=== PATIENT | female | born 1935 | race Caucasian/White ===

== ENCOUNTER 2017-04-24 02:03 | Inpatient (IN) | payer MEDICARE ==
[2017-04-24] MEDS ORDERED: SODIUM CHLORIDE 0.9% 1,000 ML IV STA (02:56)
--- NOTE | 2017-04-24 02:57 | ED ---
Nausea/Vomiting/Diarrhea HPI - General Chief complaint: Nausea/Vomiting/Diarrhea Stated complaint: diarrhea Time Seen by Provider: 04/24/17 02:31 Source: family, EMS, RN notes reviewed, old records reviewed Mode of arrival: EMS Limitations: no limitations - History of Present Illness Initial comments: 81-year-old female presents emergency Department chief complaint of one episode of severe diarrhea this evening. She reports she's had some mild abdominal cramping in her right upper and right lower quadrants. Patient states that she is had no significant abdominal surgeries. She reports that she's had some chills but denies any specific fever. Denies any vomiting. Patient reports that all of her symptoms seem to occur after she followed up with her primary care and was diagnosed with sciatica in her right leg. Patient ports that she took 2 naproxen and her dementia medication and that seemed to cause the diarrhea for her.Patient denies any recent fever, chills, shortness of breath, chest pain, back pain, abdominal pain, nausea vomiting, numbness or tingling, dysuria or hematuria, constipation, headaches or visual changes, or any other current symptoms - Related Data Allergies Allergy/AdvReac Type Severity Reaction Status Date / Time No Known Allergies Allergy Verified 04/24/17 02:04 Review of Systems ROS Statement: Those systems with pertinent positive or pertinent negative responses have been documented in the HPI. ROS Other: All systems not noted in ROS Statement are negative. Past Medical History Past Medical History: Dementia History of Any Multi-Drug Resistant Organisms: None Reported Past Surgical History: No Surgical Hx Reported Past Psychological History: No Psychological Hx Reported Smoking Status: Never smoker Past Alcohol Use History: None Reported Past Drug Use History: None Reported General Exam - General Exam Comments Initial Comments: 81-year-old female. No acute distress. Limitations: no limitations General appearance: alert, in no apparent distress Head exam: Present: atraumatic, normocephalic, normal inspection Eye exam: Present: normal appearance, PERRL, EOMI. Absent: scleral icterus, conjunctival injection, periorbital swelling ENT exam: Present: normal exam, mucous membranes moist Neck exam: Present: normal inspection. Absent: tenderness, meningismus, lymphadenopathy Respiratory exam: Present: normal lung sounds bilaterally. Absent: respiratory distress, wheezes, rales, rhonchi, stridor Cardiovascular Exam: Present: regular rate, normal rhythm, normal heart sounds. Absent: systolic murmur, diastolic murmur, rubs, gallop, clicks GI/Abdominal exam: Present: soft, tenderness (Right upper quadrant epigastric tenderness.), normal bowel sounds. Absent: distended, guarding, rebound, rigid Extremities exam: Present: normal inspection, full ROM, normal capillary refill. Absent: tenderness, pedal edema, joint swelling, calf tenderness Back exam: Present: normal inspection Neurological exam: Present: alert, oriented X3, CN II-XII intact Psychiatric exam: Present: normal affect, normal mood Skin exam: Present: warm, dry, intact, normal color. Absent: rash Course Vital Signs 04/24/17 02:04 Temperature 97.6 F Pulse Rate 68 Respiratory 16 Rate Blood Pressure 137/60 O2 Sat by Pulse 99 Oximetry Medical Decision Making - Medical Decision Making 81-year-old female presents emergency Department chief complaint of one episode of severe diarrhea this evening. She reports she's had some mild abdominal cramping in her right upper and right lower quadrants. Patient states that she is had no significant abdominal surgeries. She reports that she's had some chills but denies any specific fever. Denies any vomiting. Patient reports that all of her symptoms seem to occur after she followed up with her primary care and was diagnosed with sciatica in her right leg. Patient ports that she took 2 naproxen and her dementia medication and that seemed to cause the diarrhea for her. Patient was reevaluated abdomen is soft and nontender. Lab work was reviewed and show significant family elevated lipase patient was supported his results. Patient son is concerned of her lab work in patient reports that she feels that she doesn't be kept. Patient will be giving some medication to help her sleep. Discussed this case with Dr. Byers who will discuss with Dr. Hutchinson. Patient will be admitted with IV hydration and US abdomen in the morning. - Lab Data Result diagrams: 04/24/17 03:13 04/24/17 03:13 Lab Results 04/24/17 04/24/17 04/24/17 Range/Units 03:13 03:13 04:30 WBC 12.6 H (3.8-10.6) k/uL RBC 4.56 (3.80-5.40) m/uL Hgb 13.6 (11.4-16.0) gm/dL Hct 42.7 (34.0-46.0) % MCV 93.7 (80.0-100.0) fL MCH 29.7 (25.0-35.0) pg MCHC 31.7 (31.0-37.0) g/dL RDW 12.9 (11.5-15.5) % Plt Count 271 (150-450) k/uL Neutrophils % 87 % Lymphocytes % 4 % Monocytes % 7 % Eosinophils % 1 % Basophils % 0 % Neutrophils # 11.0 H (1.3-7.7) k/uL Lymphocytes # 0.5 L (1.0-4.8) k/uL Monocytes # 0.9 (0-1.0) k/uL Eosinophils # 0.1 (0-0.7) k/uL Basophils # 0.0 (0-0.2) k/uL Sodium 141 (137-145) mmol/L Potassium 4.3 (3.5-5.1) mmol/L Chloride 107 (98-107) mmol/L Carbon Dioxide 25 (22-30) mmol/L Anion Gap 9 mmol/L BUN 20 H (7-17) mg/dL Creatinine 1.30 H (0.52-1.04) mg/dL Est GFR (MDRD) Af Amer 47 (>60 ml/min/1.73 sqM) Est GFR (MDRD) Non-Af 39 (>60 ml/min/1.73 sqM) Glucose 117 H (74-99) mg/dL Calcium 9.0 (8.4-10.2) mg/dL Total Bilirubin 0.6 (0.2-1.3) mg/dL AST 21 (14-36) U/L ALT 31 (9-52) U/L Alkaline Phosphatase 72 (38-126) U/L Total Protein 6.5 (6.3-8.2) g/dL Albumin 3.6 (3.5-5.0) g/dL Amylase 213 H (30-110) U/L Lipase 1342 H (23-300) U/L Urine Color Yellow Urine Appearance Clear (Clear) Urine pH 6.5 (5.0-8.0) Ur Specific [place] 1.011 (1.001-1.035) Urine Protein Negative (Negative) Urine Glucose (UA) Negative (Negative) Urine Ketones Negative (Negative) Urine Blood Negative (Negative) Urine Nitrite Negative (Negative) Urine Bilirubin Negative (Negative) Urine Urobilinogen <2.0 (<2.0) mg/dL Ur Leukocyte Esterase Small H (Negative) Urine RBC 1 (0-5) /hpf Urine WBC 6 H (0-5) /hpf Ur Squamous Epith Cells <1 (0-4) /hpf Urine Bacteria Rare H (None) /hpf Hyaline Casts 5 H (0-2) /lpf Urine Mucus Rare H (None) /hpf - Radiology Data Radiology results: report reviewed KUB shows non obstructive bowel gas pattern. Disposition Clinical Impression: Acute pancreatitis Disposition: ADMITTED IP TO [facility] Condition: Good Time of Disposition: 04:45
[2017-04-24 03:55] LABS: Potassium 4.3 mmol/L (3.5-5.1); Total Bilirubin 0.6 mg/dL (0.2-1.3); Total Protein 6.5 g/dL (6.3-8.2)
[2017-04-24 04:05] LABS: Basophils % (A) 0 %; CH 29.7; CHCM 31.8; Eosinophils # (A) 0.1 k/uL (0-0.7); Eosinophils % (A) 1 %; HCT 42.7 % (34.0-46.0); HDW 2.02; HGB 13.6 gm/dL (11.4-16.0); Luc # (Auto) 0.13; Luc % (Auto) 1; Lymphocytes # (A) 0.5 k/uL (1.0-4.8); Lymphocytes % (A) 4 %; MCH 29.7 pg (25.0-35.0); MCHC 31.7 g/dL (31.0-37.0); MCV 93.7 fL (80.0-100.0); Mean Platelet Volume 7.6; Monocytes # (A) 0.9 k/uL (0-1.0); Monocytes % (A) 7 %; Neutrophils % (A) 87 %; RBC 4.56 m/uL (3.80-5.40); RDW 12.9 % (11.5-15.5); WBC 12.6 k/uL (3.8-10.6); WBC (Perox) 12.15
--- NOTE | 2017-04-24 04:12 | XR ---
EXAM: XR Abdomen, 1 View CLINICAL HISTORY: pain TECHNIQUE: Frontal supine view of the abdomen/pelvis. COMPARISON: No relevant prior studies available. FINDINGS: Intraperitoneal space: No pneumatosis or free air. Gastrointestinal tract: Gas and stool noted throughout the small bowel and colon. Nonobstructive bowel gas pattern. Organs: Calcifications within the pelvis which may represent degenerating fibroids. Bones/joints: Degenerative changes of the osseous structures. IMPRESSION: Gas and stool noted throughout the small bowel and colon. Nonobstructive bowel gas pattern. No pneumatosis or free air.
[2017-04-24] MEDS ORDERED: LORazepam 2 MG/ML SYRINGE IV PRN (04:45)
[2017-04-24] MEDS ORDERED: HYDROmorphone 1 MG/ML 1 ML SYRINGE IV PRN (04:45)
[2017-04-24] MEDS ORDERED: ONDANSETRON 4 MG/2 ML VIAL IVP PRN (04:45)
[2017-04-24] MEDS ORDERED: KETOROLAC 30 MG/ML 1 ML VIAL IVP PRN (04:45)
[2017-04-24] MEDS ORDERED: NALOXONE 0.4 MG/ML 1 ML VIAL IV PRN (04:45)
[2017-04-24 05:01] LABS: Appearance,Urine Clear (Clear); Bacteria,Urine Rare /hpf; Bilirubin,Urine Negative (Negative); Glucose,Urine (UA) Negative (Negative); Ketones,Urine Negative (Negative); Leukocyte Esterase,Urine Small (Negative); Mucus,Urine Rare /hpf; Nitrite,Urine Negative (Negative); PH, Urine 6.5 (5.0-8.0); Particle Count 1069; Protein,Urine Negative (Negative); RBC,Urine 1 /hpf (0-5); Specific Gravity,Urine 1.011 (1.001-1.035); Squamous Epithelial Cell,Urine <1 /hpf (0-4); UA Billing (MACRO vs. MICRO) MICRO; Urobilinogen,Urine <2.0 mg/dL (<2.0); WBC,Urine 6 /hpf (0-5)
[2017-04-24] MEDS: SODIUM CHLORIDE 0.9% 1,000 ML IV SCH ×2 (05:19→20:19)
--- NOTE | 2017-04-24 08:52 | US ---
EXAMINATION TYPE: US abdomen complete DATE OF EXAM: 04/24/2017 COMPARISON: NONE CLINICAL HISTORY: Pain. Abdomen pain EXAM MEASUREMENTS: Liver Length: 14.2 cm Gallbladder Wall: 0.2 cm CBD: 0.4 cm Spleen: 9.9 cm Right Kidney: 8.1 x 4.0 x 5.1 cm Left Kidney: 9.3 x 4.6 x 4.5 cm Pancreas: visualized portions appear heterogeneous, tail obscured by overlying midline bowel gas, du ct seen measuring 0.2cm Liver: somewhat course echotexture, 0.9cm cyst Gallbladder: multiple hyperechoic non shadowing non mobile foci along anterior wall with largest radha suring 0.3cm, possible polyps Evidence for sonographic Kim's sign: no CBD: wnl Spleen: wnl Right Kidney: 1.4 x 1.3 x 1.5cm hypoechoic area inferior pole Left Kidney: 0.8cm hypoechoic area mid pole Upper IVC: wnl Abd Aorta: wnl Limited views of the pancreas are unremarkable. The liver is normal in size without biliary dilatation. There is a 9.4 mm cyst within the left lobe o f the liver. There are multiple gallbladder polyps. The gallbladder wall measures 2 mm. The distal common hepatic duct measures 4 mm. The spleen is normal. There is a 1.5 cm hypoechoic, solid lesion in the mid polar region of the right kidney. There is an 8 mm solid appearing lesion in the left kidney in the mid polar region. Visualized portions of aorta and IVC are normal. IMPRESSION: 1. MULTIPLE GALLBLADDER POLYPS. 2. SIMPLE APPEARING LEFT HEPATIC CYST. 3. BILATERAL SOLID-APPEARING LESIONS IN BOTH KIDNEYS. FURTHER IMAGING WITH CT OR MR WOULD BE SUGGESTE D.
--- NOTE | 2017-04-24 08:54 | XR ---
EXAMINATION TYPE: XR chest 2V DATE OF EXAM: 04/24/2017 COMPARISON: NONE TECHNIQUE: PA and lateral views submitted. HISTORY: Pain FINDINGS: The lungs are clear and there is no pneumothorax, pleural effusion, or focal pneumonia. Degenerativ e change of the spine. No overt congestion. There is thickening of the right paratracheal stripe. Tin y granuloma left lung noted. IMPRESSION: 1. No acute process. There appears be thickening of the right paratracheal stripe. Recommend CT chest to rule out adenopathy
[2017-04-24 09:15] VITALS: BMI 23.8
[2017-04-25 07:17] LABS: ALT 29 U/L (9-52); AST 18 U/L (14-36); Alkaline Phosphatase 60 U/L (38-126); Anion Gap 5 mmol/L; Blood Urea Nitrogen 9 mg/dL (7-17); Calcium 8.4 mg/dL (8.4-10.2); Carbon Dioxide 23 mmol/L (22-30); Chloride 114 mmol/L (98-107); Cholesterol 131 mg/dL (<200); Glucose 78 mg/dL (74-99); HDL Cholesterol 43 mg/dL (40-60); Non-African American GFR(MDRD) 52 (>60 ml/min/1.73 sqM); Potassium 4.2 mmol/L (3.5-5.1); Sodium 142 mmol/L (137-145); Total Bilirubin 0.4 mg/dL (0.2-1.3); Total Protein 5.6 g/dL (6.3-8.2); Triglycerides 62 mg/dL (<150)
[2017-04-25 08:13] VITALS: BP 147/65; PULSE 65; RESP 16; TEMP 98.2
--- NOTE | 2017-04-25 11:39 | HP ---
DATE OF ADMISSION: 04/24/17 CHIEF COMPLAINT: Abdominal pain. HISTORY OF PRESENT ILLNESS: This 81 year old female presented to the emergency room with abdominal cramping and significant diarrhea. The patient's son says the patient became diaphoretic. In view of this, he brought her into the emergency room. Denied any vomiting. The patient had significant abdominal cramping which was generalized. There was no other associated symptoms of fever or chills. The patient in fact was seen earlier in the day by me with complaints of pain in the right buttocks radiating to the right leg with some tingling sensations in the toes for about two weeks duration. Her symptoms were improving. The patient has no evidence of any focal neurological deficit and was felt to have right leg radicular neurotic pain. The patient was recommended to take Aleve as needed for back pain. Otherwise, no other medications were prescribed. The patient did take one Aleve in the evening. The pain was generalized with no radiation to the back. The patient had no blood in the stool. At the time of my evaluation in the emergency room, the patient's lipase is elevated. No other findings. The patient was admitted to the hospital in view of suggestion of mild pancreatitis. 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 No history of any hypertension, diabetes, lung, liver or kidney disease. No history of any ulcers, TB, hepatitis, rheumatic fever, no history of any myocardial infarction or CVA. PAST SURGICAL HISTORY: Negative for any major surgeries. PERSONAL HISTORY: Nonsmoker, alcohol none. SOCIAL HISTORY: The patient is a . Two sons. Lives at home. She has two sons living with her. One of them is on dialysis. FAMILY MEDICAL HISTORY: The patient has three sons. Two of the sons are living with her. One of them has a history of renal failure on dialysis, etiology unknown. REVIEW OF SYSTEMS: NEURO: Denies any headaches. No blurred vision, double vision, symptoms of TIA , syncope or syncope. PSYCH: No history of anxiety or depression. History of mild cognitive impairment. CARDIAC: No chest pain, angina or palpitations. RESPIRATORY: Denies shortness of breath, cough, hemoptysis. GI: Present complaint of abdominal pain and diarrhea. No other symptoms. : No symptoms of dysuria or hematuria, urgency, frequency. EXTREMITIES: Denies edema, and has some pain in the right leg periodically radiating from the buttock to the lower leg. Denies other pain. CONSTITUTIONAL: No fever or chills. SKIN: No rash. ENT: Adequate hearing, smell test. Has adequate vision. PHYSICAL EXAMINATION: Pleasant female in no distress, sitting up in bed. VITAL SIGNS: Vital signs revealed temperature 98.5, pulse 61, respirations 18, blood pressure 129/68. Pulse ox 97% on room air. HEENT: Normocephalic. NECK: Supple. Pupils are reactive. Nostrils clear. Oral cavity is moist. Ears reveals no drainage, Neck reveals no JVD or carotid bruits. No thyromegaly. CHEST: Clear to auscultation and percussion. CARDIAC: Normal S1, S2 with no gallops, murmurs or rubs. Abdomen is soft. No palpable masses. Bowel sounds normal. No organomegaly. No abdominal bruits. Extremities reveals no edema. Good pulses in both upper and lower extremities. Right leg straight leg raising is negative. Neurologically awake, alert, oriented to place, person, moves both upper and lower extremities adequately. Gait is stable. Laboratory assessment: White count 12.6, hemoglobin 13.6, platelets 271. Electrolytes normal. BUN 20. Creatinine 1.30. Glucose 117, normal hepatic function. Normal bilirubin. Albumin 3.6, amylase 213. Lipase 1342. Urine unremarkable. Chest x-ray questionable radiologist interpretation, there is thickening of the right paratracheal stripe. Recommended CT scan in view of that, however, the patient will have a follow up x-ray subsequently. At present, did not see any need for doing a CT scan. The patient also had ultrasound of the abdomen which reveals no cholelithiasis ( ) normal. Liver is normal. Pancreas partially visualized. The patient does have some solid lesions in the kidneys. Again, we will follow up that as an outpatient. Recommended CT scan. However, the patient's renal functions not at par. ASSESSMENT: 1. Abdominal pain, diarrhea with elevated lipase, possibility of pancreatitis. 2. Chronic kidney disease, Stage III. 3. History of mild dementia. 4. Degenerative disc disease with right L4, L5 root symptoms. PLAN: Continue present medical regimen with IV hydration. Prn pain medication. The patient's abdomen is soft. The patient denies any pain at the time of evaluation. We will start the patient on full liquids and see how she tolerates. If she tolerates well, we will switch the patient over to regular diet tomorrow. Potential discharge home tomorrow if stable. SIXTO
== END 2017-04-25 14:06 | disposition home or self-care (01) | DRG 440 ==
LOC: EC 02:03 → 3SUR 04:45
PROVIDERS: ADMIT Internal Medicine; ATTEND Internal Medicine
DX: K85.90 Acute pancreatitis without necrosis or infection, unspecified (principal); G30.9 Alzheimer's disease, unspecified; N18.3 Chronic kidney disease, stage 3 (moderate); F02.80 Dementia in other diseases classified elsewhere, unspecified severity, without behavioral disturbance, psychotic disturbance, mood disturbance, and anxiety; M51.36 Other intervertebral disc degeneration, lumbar region; R19.7 Diarrhea, unspecified; M54.31 Sciatica, right side
CPT/HCPCS: 36415; 71020; 74000; 76700; 80053; 80061; 81001; 82150; 83690; 85025; 96360; 99285

== ENCOUNTER 2018-04-13 10:25 | Inpatient (IN) | payer MEDICARE ==
[2018-04-13] MEDS ORDERED: SODIUM CHLORIDE 0.9% 500 ML IV STA (10:47)
--- NOTE | 2018-04-13 10:53 | ED ---
General Adult HPI - General Chief complaint: Weakness Stated complaint: Weakness Time Seen by Provider: 04/13/18 10:25 Source: EMS, RN notes reviewed Mode of arrival: EMS Limitations: no limitations - History of Present Illness Initial comments: This is an 82-year-old female presents emergency Department by EMS because son sent her in because she was dizzy yesterday and it seemed to resolve. Son states again today he came home from getting a coffee she was holding on to walk like she couldn't stand up without falling over. Patient is able to move all 4 extremities however she is having a very difficult time ambulating according to son. He thought the patient's speech was slurred and continues to be intermittently slurred per the patient son. Patient has dementia and is unable to give any accurate history. Son states she has not had any recent fever chills but no difficulty breathing shortness of breath but no complaints of headache and chest pain or abdominal pain. He has not noted any nausea vomiting or diarrhea with the patient. Patient has not had any previous difficulties with balance.son states the patient has had no trauma that he knows of. - Related Data Home Medications Medication Instructions Recorded Confirmed Donepezil [Aricept] 10 mg PO DAILY 04/13/18 04/13/18 Timolol 0.25% Ophth Soln [Timoptic 1 drop LEFT EYE DAILY 04/13/18 04/13/18 0.25% Ophth Soln] Allergies Allergy/AdvReac Type Severity Reaction Status Date / Time No Known Allergies Allergy Verified 04/13/18 11:18 Review of Systems ROS Statement: Those systems with pertinent positive or pertinent negative responses have been documented in the HPI. ROS Other: All systems not noted in ROS Statement are negative. Past Medical History Past Medical History: Dementia History of Any Multi-Drug Resistant Organisms: None Reported Past Surgical History: Tonsillectomy Past Anesthesia/Blood Transfusion Reactions: No Reported Reaction Past Psychological History: No Psychological Hx Reported Smoking Status: Never smoker Past Alcohol Use History: None Reported Past Drug Use History: None Reported General Exam - General Exam Comments Initial Comments: GENERAL: Patient is well-developed and well-nourished. Patient is nontoxic and well- hydrated and is in no acute distress ENT: Neck is soft and supple. No significant lymphadenopathy is noted. Oropharynx is clear. Moist mucous membranes. Neck has full range of motion without eliciting any pain. EYES: The sclera were anicteric and conjunctiva were pink and moist. Extraocular movements were intact and pupils were equal round and reactive to light. Eyelids were unremarkable. PULMONARY: Unlabored respirations. Good breath sounds bilaterally. No audible rales rhonchi or wheezing was noted. CARDIOVASCULAR: There is a regular rate and rhythm without any murmurs gallops or rubs. ABDOMEN: Soft and nontender with normal bowel sounds. No palpable organomegaly was noted. There is no palpable pulsatile mass. SKIN: Skin is clear with no lesions or rashes and otherwise unremarkable. NEUROLOGIC: Patient is alert and oriented 1. Cranial nerves II through XII are grossly intact. Motor and sensory are also intact. Patient has slightly slurred speech. Symmetrical smile. MUSCULOSKELETAL: Normal extremities with adequate strength and full range of motion. No lower extremity swelling or edema. No calf tenderness. LYMPHATICS: No significant lymphadenopathy is noted PSYCHIATRIC: Patient's very flat affect and she does make mention that she thinks her son is trying to poison her. Son had said this is been a common theme with her. Limitations: no limitations Course Vital Signs 04/13/18 04/13/18 10:30 12:07 Temperature 97.3 F L Pulse Rate 63 66 Respiratory 20 18 Rate Blood Pressure 153/73 154/98 O2 Sat by Pulse 99 98 Oximetry Medical Decision Making - Medical Decision Making EKG shows normal sinus rhythm at [address] interval is on a 54 QRS 78 QT interval 44 QTC is 410. Patient's EKG shows no ST segment elevation or depression or T wave abnormalities are noted. Computed tomography scan of the brain shows no acute intracranial abnormality. However the CAT scan does show some subcutaneous air in the temporal region. I went back to examine that area there is no signs of trauma there is no signs of tenderness was no signs of redness. I talked with Dr. Garcia he agreed to admit the patient I consult neurology and I wrote admitting orders. - Lab Data Result diagrams: 04/13/18 10:52 04/13/18 10:52 Lab Results 04/13/18 04/13/18 04/13/18 Range/Units 10:52 10:52 10:52 WBC 7.4 (3.8-10.6) k/uL RBC 4.27 (3.80-5.40) m/uL Hgb 12.6 (11.4-16.0) gm/dL Hct 39.7 (34.0-46.0) % MCV 93.1 (80.0-100.0) fL MCH 29.4 (25.0-35.0) pg MCHC 31.6 (31.0-37.0) g/dL RDW 13.0 (11.5-15.5) % Plt Count 270 (150-450) k/uL Neutrophils % 68 % Lymphocytes % 19 % Monocytes % 7 % Eosinophils % 3 % Basophils % 0 % Neutrophils # 5.0 (1.3-7.7) k/uL Lymphocytes # 1.4 (1.0-4.8) k/uL Monocytes # 0.6 (0-1.0) k/uL Eosinophils # 0.2 (0-0.7) k/uL Basophils # 0.0 (0-0.2) k/uL PT (9.0-12.0) sec INR (<1.2) APTT (22.0-30.0) sec Sodium 143 (137-145) mmol/L Potassium 4.1 (3.5-5.1) mmol/L Chloride 111 H (98-107) mmol/L Carbon Dioxide 20 L (22-30) mmol/L Anion Gap 12 mmol/L BUN 16 (7-17) mg/dL Creatinine 1.07 H (0.52-1.04) mg/dL Est GFR (CKD-EPI)AfAm 55 (>60 ml/min/1.73 sqM) Est GFR (CKD-EPI)NonAf 48 (>60 ml/min/1.73 sqM) Glucose 152 H (74-99) mg/dL Plasma Lactic Acid [place] (0.7-2.0) mmol/L Calcium 8.7 (8.4-10.2) mg/dL Total Bilirubin 0.4 (0.2-1.3) mg/dL AST 22 (14-36) U/L ALT 28 (9-52) U/L Alkaline Phosphatase 57 (38-126) U/L Total Creatine Kinase 102 (30-135) U/L CK-MB (CK-2) 1.6 (0.0-2.4) ng/mL CK-MB (CK-2) Rel Index 1.6 Troponin I <0.012 (0.000-0.034) ng/mL Total Protein 6.0 L (6.3-8.2) g/dL Albumin 3.3 L (3.5-5.0) g/dL Urine Color Urine Appearance (Clear) Urine pH (5.0-8.0) Ur Specific [place] (1.001-1.035) Urine Protein (Negative) Urine Glucose (UA) (Negative) Urine Ketones (Negative) Urine Blood (Negative) Urine Nitrite (Negative) Urine Bilirubin (Negative) Urine Urobilinogen (<2.0) mg/dL Ur Leukocyte Esterase (Negative) Urine RBC (0-5) /hpf Urine WBC (0-5) /hpf Ur Squamous Epith Cells (0-4) /hpf Urine Bacteria (None) /hpf Hyaline Casts (0-2) /lpf Urine Mucus (None) /hpf Urine Yeast (Budding) (None) /hpf 04/13/18 04/13/18 04/13/18 Range/Units 10:52 10:52 11:50 WBC (3.8-10.6) k/uL RBC (3.80-5.40) m/uL Hgb (11.4-16.0) gm/dL Hct (34.0-46.0) % MCV (80.0-100.0) fL MCH (25.0-35.0) pg MCHC (31.0-37.0) g/dL RDW (11.5-15.5) % Plt Count (150-450) k/uL Neutrophils % % Lymphocytes % % Monocytes % % Eosinophils % % Basophils % % Neutrophils # (1.3-7.7) k/uL Lymphocytes # (1.0-4.8) k/uL Monocytes # (0-1.0) k/uL Eosinophils # (0-0.7) k/uL Basophils # (0-0.2) k/uL PT 11.0 (9.0-12.0) sec INR 1.1 (<1.2) APTT 23.8 (22.0-30.0) sec Sodium (137-145) mmol/L Potassium (3.5-5.1) mmol/L Chloride (98-107) mmol/L Carbon Dioxide (22-30) mmol/L Anion Gap mmol/L BUN (7-17) mg/dL Creatinine (0.52-1.04) mg/dL Est GFR (CKD-EPI)AfAm (>60 ml/min/1.73 sqM) Est GFR (CKD-EPI)NonAf (>60 ml/min/1.73 sqM) Glucose (74-99) mg/dL Plasma Lactic Acid [place] 1.3 (0.7-2.0) mmol/L Calcium (8.4-10.2) mg/dL Total Bilirubin (0.2-1.3) mg/dL AST (14-36) U/L ALT (9-52) U/L Alkaline Phosphatase (38-126) U/L Total Creatine Kinase (30-135) U/L CK-MB (CK-2) (0.0-2.4) ng/mL CK-MB (CK-2) Rel Index Troponin I (0.000-0.034) ng/mL Total Protein (6.3-8.2) g/dL Albumin (3.5-5.0) g/dL Urine Color Yellow Urine Appearance Clear (Clear) Urine pH 6.0 (5.0-8.0) Ur Specific [place] 1.008 (1.001-1.035) Urine Protein Negative (Negative) Urine Glucose (UA) 1+ H (Negative) Urine Ketones Negative (Negative) Urine Blood Negative (Negative) Urine Nitrite Negative (Negative) Urine Bilirubin Negative (Negative) Urine Urobilinogen <2.0 (<2.0) mg/dL Ur Leukocyte Esterase Small H (Negative) Urine RBC <1 (0-5) /hpf Urine WBC 5 (0-5) /hpf Ur Squamous Epith Cells <1 (0-4) /hpf Urine Bacteria Rare H (None) /hpf Hyaline Casts 3 H (0-2) /lpf Urine Mucus Rare H (None) /hpf Urine Yeast (Budding) Rare H (None) /hpf Disposition Clinical Impression: Ataxia, CVA (cerebral vascular accident) Disposition: ADMITTED IP TO THIS [facility] Referrals: Homero Hutchinson MD [Primary Care Provider] - 1-2 days Time of Disposition: 12:15
[2018-04-13 11:02] LABS: Basophils % (A) 0 %; Eosinophils # (A) 0.2 k/uL (0-0.7); Eosinophils % (A) 3 %; HCT 39.7 % (34.0-46.0); HGB 12.6 gm/dL (11.4-16.0); Lymphocytes # (A) 1.4 k/uL (1.0-4.8); Lymphocytes % (A) 19 %; MCH 29.4 pg (25.0-35.0); MCHC 31.6 g/dL (31.0-37.0); MCV 93.1 fL (80.0-100.0); Mean Platelet Volume 7.5; Monocytes # (A) 0.6 k/uL (0-1.0); Monocytes % (A) 7 %; Neutrophils % (A) 68 %; Platelet Count 270 k/uL (150-450); RBC 4.27 m/uL (3.80-5.40); WBC 7.4 k/uL (3.8-10.6)
[2018-04-13 11:11] LABS: Albumin 3.3 g/dL (3.5-5.0); Calcium 8.7 mg/dL (8.4-10.2); Potassium 4.1 mmol/L (3.5-5.1); Total Bilirubin 0.4 mg/dL (0.2-1.3)
[2018-04-13 11:19] LABS: INR 1.1 (<1.2); Partial Thromboplastin Time 23.8 sec (22.0-30.0)
[2018-04-13 11:23] LABS: Creatine Kinase 102 U/L (30-135)
[2018-04-13 11:36] LABS: Creatine Kinase MB 1.6 ng/mL (0.0-2.4); Troponin I <0.012 ng/mL (0.000-0.034)
--- NOTE | 2018-04-13 11:58 | CT ---
EXAMINATION TYPE: CT brain wo con DATE OF EXAM: 04/13/2018 COMPARISON: NONE HISTORY: Patient poor historian. Weakness. CT DLP: 756 mGycm Automated exposure control for dose reduction was used. FINDINGS: There are generalized changes of sulcal prominence and ventriculomegaly, compatible with atrophic booker nges. There is periventricular white matter lucency, compatible with small vessel ischemic change. Th ere are vascular calcifications present. There is no acute focal lesion, mass effect or midline shift identified. I do not see evidence of intracranial blood. There is subcutaneous air present along the right temporal region. No calvarial fracture is seen. Visualized portions of the paranasal sinuses and mastoids are clear. IMPRESSION: 1. SUBCUTANEOUS AIR ALONG THE RIGHT TEMPORAL REGION. 2. NO ACUTE INTRACRANIAL ABNORMALITY. 3. ATROPHY. 4. CHRONIC WHITE MATTER ISCHEMIC CHANGE.
[2018-04-13 11:59] LABS: Appearance,Urine Clear (Clear); Bacteria,Urine Rare /hpf; Bilirubin,Urine Negative (Negative); Blood,Urine Negative (Negative); Budding Yeast,Urine Rare /hpf; Color,Urine Yellow; Glucose,Urine (UA) 1+ (Negative); Hyaline Casts,Urine 3 /lpf (0-2); Ketones,Urine Negative (Negative); Leukocyte Esterase,Urine Small (Negative); Mucus,Urine Rare /hpf; Nitrite,Urine Negative (Negative); Protein,Urine Negative (Negative); RBC,Urine <1 /hpf (0-5); Specific Gravity,Urine 1.008 (1.001-1.035); Squamous Epithelial Cell,Urine <1 /hpf (0-4); Urobilinogen,Urine <2.0 mg/dL (<2.0); WBC,Urine 5 /hpf (0-5)
--- NOTE | 2018-04-13 11:59 | XR ---
EXAMINATION TYPE: XR chest 2V DATE OF EXAM: 04/13/2018 HISTORY: Weakness. REFERENCE: Previous study dated 04/24/2017. FINDINGS: The study is mildly rotated. The heart is mildly enlarged. Lungs are clear. Pleural spaces are clear. IMPRESSION: MILD CARDIOMEGALY.
[2018-04-13] MEDS ORDERED: ASPIRIN 325 MG TAB PO STA (12:15)
[2018-04-13] MEDS ORDERED: SODIUM CHLORIDE 0.9% 1,000 ML IV SCH (12:15)
[2018-04-13 14:56] VITALS: BMI 27.4
[2018-04-13] MEDS ORDERED: ENALAPRILAT 1.25 MG/ML 1 ML VIAL IVP PRN (16:24)
--- NOTE | 2018-04-13 17:28 | HP ---
HISTORY AND PHYSICAL Her height is 5 foot 2 inches, weight 86.039 kg. BSA 1.69 m2, BMI 27.4 kg/m2. Allergy is unknown. HISTORY AND CHIEF COMPLAINT: Patient brought to the emergency room by her son. Patient has underlying history of dementia and he found her yesterday complaining of some shakiness of her legs and she was uncomfortable of her abdomen with the distention. Today, he felt today that she has shaking of her legs and was not able to ambulate. He subsequently brought her to the emergency room. HISTORY OF PRESENT ILLNESS: An 82-year-old white female presented to Dr. Sim as the patient sent by EMS to the emergency room, she was dizzy yesterday as he stated, but resolved. When he returned back from coffee she was not holding on walking, could not stand up, falling over. Patient was able to move her 4 extremities. She was having difficulty of ambulation according to her son. He thought that she has speech disturbance or slurred. However, patient has underlying dementia and could not give accurate history. Also he said son to Dr. Sim that she had a recent fever, chills, but no difficulty of breathing. She has no complaint of a headache, blurred vision, or chest pain or abdominal pain. No nausea, no vomiting. No diarrhea. No hematochezia or hematemesis or melena. PATIENT MEDICATION: She is on Aricept 10 mg daily for underlying dementia and she has been on timolol 0.25% ophthalmic solution 1 drop in the left eye daily. REVIEW OF SYSTEM: The patient could not give any detailed history. However, in the emergency room, her blood pressure was abnormal [address] way until arrival from emergency room to the floor and still continued on the floor. On the floor we started to treat her with medication as lisinopril and Norvasc as well as getting Vasotec for the parameter exceeding 160 systolic. PAST MEDICAL HISTORY: Dementia, no history of drug resistance. She had history of surgical tonsillectomy. No reaction with anesthesia. No psychological event. Never smoked. No alcohol intake. No drug use history. As patient examined today, she is well developed, well nourished, well hydrated. The vital signs indicating initial blood pressure 174/79 with a mean 110 until reaching the floor, it is 176/72 with a mean 106. No medication started in the emergency room. Her oxygen saturation was 98% on room air. Her temperature was 97.8 and her respiratory rate was 16. Her pulse rate was 73, regular sinus rhythm. HEENT: The head was normocephalic, atraumatic. Pupil was equal, reactive. No facial asymmetry. Able to eat and swallow. No abnormality. On her oral exam, she had upper plate dentures and lower natural, uvula midline. The neck was supple. No JVD. No thyromegaly. No lymphadenopathy. Trachea midline. The chest was examined in supine position and in sitting position with lung was clear to auscultation and percussion. No wheezes, no rhonchi. Palpation of the spine from cervical to the lumbosacral was normal. No tenderness on palpation. No trigger point. The heart, the PMI in the 5th outside midclavicular line with normal S1, S2. No gallop with the associated soft murmur. We do not have any previous history of echocardiogram and the EKG done in the emergency room was indicating normal sinus rhythm with the presence of anterior infarct with loss of the R-wave in V1, V2, V3, with the rate of 62 per minute, the age undetermined, but abnormal EKG. Also as patient had a chest x-ray and the chest x-ray indicating cardiomegaly and no pulmonary abnormalities, which suggested for us to evaluate her left ventricular function with the underlying hypertensive heart disease. The abdomen was soft, positive bowel sounds and no tenderness in the four quadrants; however, suprapubic, she has some discomfort with probably urine retention. We did the bladder scan showed 200 mL. We also will wait another 6 hours and repeat the bladder scan and subsequently further treatment if the patient could not urinate. She had positive bowel sounds and we will wait for bowel movement. It seems to me that she may have a stools and did not move her bowel. We will start her on the stool softener. EXTREMITIES: No edema and positive pulses and she had varicose veins scattered superficial. 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 No evidence of tremors or shakiness. No evidence of ataxia. Her neurological exam, her deep tendon reflexes was 2+ bilateral and symmetrical in the upper and lower extremities. Her Babinski sign was negative bilaterally. Her pulses in the feet were normal and no evidence of tremors or shakiness and no evidence of muscle cramps. The possibility of restless legs syndrome still could be considered. However, there is no evidence of ataxia as has been proposed by Dr. Sim from the ER. No shakiness at the time and of the examination as well. We did have the brain scan and the brain scan was done and the point out for the impression subcutaneous air along the right temporal region and no acute intracranial abnormalities. There is atrophy and there is chronic white matter ischemic changes. The questionable of the subcutaneous air along the right temporal region is unclear to me and we will be discussing it with the Radiology, but meanwhile that she had no symptoms bothering her at this time. And this is stated that outside not inside with no acute frontal or focal or mass-effect lesion and subcutaneous air present along the right temporal region and the paranasal sinus and mastoid sinus is clear. I am not sure of that finding yet. The assessment at this time, we have which is clearly present: 1. Underlying hypertension with hypertensive heart disease. 2. Underlying by the EKG, anteroseptal myocardial infarction and need for evaluation of the left ventricular function in the face of hypertensive heart disease. 3. On my clinical examination, patient has no lateralizing sign. No evidence of stroke and no evidence of transient ischemic attack. 4. She had history of dementia. She is on Aricept and we continued this current medication. Lipid profile will be done tomorrow. Her laboratories were reviewed and as well as the note from Dr. Sim was reviewed with the underlying impression of the ER that CVA and ataxia is doubted at this point and will still continue monitoring the patient with no evidence of nystagmus. There is no evidence of headache or blurred vision. No evidence of lateralizing sign. Pupils equal with reactive. Muscle strength is normal bilaterally. We will be planning to monitor her neurological defect with neuro checks as well as we obtained electrolytes as well and CBC with differential and obtaining the echocardiogram as well. 5. Control blood pressure to a reasonable level as well as check on hyperlipidemia. At this time, we will be checking her bladder scan and will discontinue neurological consult until we have evidence of the need of the Neurology for further treatment. We discontinue consultation of Dr. Ortiz and they informed his PA as Dr. Ortiz is not available and the patient is usually seen by his PA. Further followup as indicated and I will see her tomorrow and Dr. Hutchinson will follow up on Sunday. MMODL / IJN: [id number] /
[2018-04-13 17:47] VITALS: RESP 18
[2018-04-13] MEDS: LISINOPRIL 5 MG TAB PO SCH (18:48)
[2018-04-13] MEDS: LACTATED RINGERS 1,000 ML IV SCH (18:49)
[2018-04-13] MEDS: SENNOSIDES-DOCUSATE SODIUM 1 EACH TAB PO SCH (20:10)
[2018-04-13] MEDS ORDERED: amLODIPine 5 MG TAB PO SCH (21:00)
[2018-04-14 06:17] LABS: Basophils % (A) 0 %; Eosinophils # (A) 0.2 k/uL (0-0.7); Eosinophils % (A) 2 %; HCT 39.9 % (34.0-46.0); HGB 12.9 gm/dL (11.4-16.0); Lymphocytes # (A) 1.5 k/uL (1.0-4.8); Lymphocytes % (A) 17 %; MCH 29.5 pg (25.0-35.0); MCHC 32.3 g/dL (31.0-37.0); MCV 91.4 fL (80.0-100.0); Mean Platelet Volume 7.6; Monocytes # (A) 0.7 k/uL (0-1.0); Monocytes % (A) 8 %; Neutrophils # (A) 6.2 k/uL (1.3-7.7); Neutrophils % (A) 71 %; Platelet Count 258 k/uL (150-450); RBC 4.37 m/uL (3.80-5.40); WBC 8.7 k/uL (3.8-10.6)
[2018-04-14 06:29] LABS: Magnesium 1.9 mg/dL (1.6-2.3)
[2018-04-14] MEDS: SENNOSIDES-DOCUSATE SODIUM 1 EACH TAB PO SCH (08:09)
[2018-04-14] MEDS: LISINOPRIL 5 MG TAB PO SCH (08:15)
[2018-04-14] MEDS: LACTATED RINGERS 1,000 ML IV SCH (08:16)
[2018-04-14] MEDS ORDERED: DONEPEZIL 10 MG TAB PO SCH (09:00)
[2018-04-14] MEDS ORDERED: TIMOLOL 0.25% OPHTH DROPS 5 ML BTL LEFT EYE SCH (09:00)
--- NOTE | 2018-04-14 12:07 | P.DS ---
Providers Date of admission: 04/13/18 12:15 Attending physician: Homero Hutchinson Primary care physician: Homero Hutchinson Plan - Discharge Summary New Discharge Prescriptions: New amLODIPine [Norvasc] 5 mg PO HS #30 tab Aspirin 325 mg PO DAILY tab Lisinopril [Zestril] 5 mg PO DAILY #30 tab Sennosides-Docusate Sodium [Senokot-S] 1 each PO BID #60 tab Continue Donepezil [Aricept] 10 mg PO DAILY Timolol 0.25% Ophth Soln [Timoptic 0.25% Ophth Soln] 1 drop LEFT EYE DAILY Discharge Medication List Donepezil [Aricept] 10 mg PO DAILY 04/13/18 [History] Timolol 0.25% Ophth Soln [Timoptic 0.25% Ophth Soln] 1 drop LEFT EYE DAILY 04/13 [History] Aspirin 325 mg PO DAILY tab 04/14/18 [Rx] Lisinopril [Zestril] 5 mg PO DAILY #30 tab 04/14/18 [Rx] Sennosides-Docusate Sodium [Senokot-S] 1 each PO BID #60 tab 04/14/18 [Rx] amLODIPine [Norvasc] 5 mg PO HS #30 tab 04/14/18 [Rx] Follow up Appointment(s)/Referral(s): Homero Hutchinson MD [Primary Care Provider] - 1-2 days Activity/Diet/Wound Care/Special Instructions: Regular diet
[2018-04-14] MEDS ORDERED: ASPIRIN 325 MG TAB PO SCH (12:16)
[2018-04-14 12:36] VITALS: BP 137/65; PULSE 56; TEMP 96.6
--- NOTE | 2018-04-14 12:53 | DS ---
DISCHARGE SUMMARY DATE OF SERVICE: 04/14/18. NEW DATA: She is a 5 foot 2 inches, weight 60 kg, BSA 1.60 m2, BMI 24.2 kg/m2. Her ALLERGY is unknown. FINAL DIAGNOSES: 1. Mild dehydration. 2. Hypertension, uncontrolled, currently on discharge is controlled with the added to medication, lisinopril as well as amlodipine. 3. Dementia, Alzheimer's type. 4. Hypertensive heart disease with cardiomegaly with underlying hypertension. 5. No evidence of ataxia and no evidence of other neurological disease other than dementia, progressive. 6. Constipation chronic and given docusate sodium with the Senokot S and 1 tablet twice a day and to have a small regulated bowel movement. On presentation in the emergency room, the patient was seen by Dr. Sim and at that time, he felt that patient dizzy as well as having difficulty of ambulation per her son and the patient speech was slurred. However, this is the history from the son. She denied any nausea and vomiting and her medication was the same. No changes. Blood pressure was 153/73 in the emergency room and 2nd reading 154/98 with the diastolic hypertension. As well as laboratory was indicating that her carbon dioxide was 20, creatinine 1.07 with the estimated glomerular filtration rate was 48 with the lactic acid was normal and blood sugar was 152. However, the patient slowly hydrated and liver enzymes was normal on admission. Today as a subsequent we did neuro checks as well and we have no evidence of tremors, except we have only confusion with the underlying baseline dementia. Her white count is 8.7 with hemoglobin 12.9, which is actually better than yesterday and her electrolytes within normal limits with the sodium 139, potassium 4, her chloride improved to 108 and her creatinine down to 0.9 and BUN was normal at 13 with the estimated glomerular filtration rate improved from 48-59 and her blood sugar is also 96, normal. Magnesium is normal 1.9 as well. Calcium is 9, which is normal. As patient, we thought that she has urinary retention. Bladder scan was done and was in the average. We did not need to put a Rivero catheter. Her cholesterol level was indicating that the total cholesterol 171, HDL 49, and LDL 104 with triglycerides 92. Her urine was clear with the underlying was 1+ positive glucose could be also, however, the fasting blood sugar is normal and so the small leukocyte and no nitrites and rare mucus and urine yeast budding rare and that no need for treatment at this time. Needs only increase the oral intake of water. Further follow up with Dr. Hutchinson as outpatient in 2-3 days post discharge and otherwise continue her current medication and prescription was given. The patient is stable general condition and her vital signs normal and she was admitted as observation and will be discharged to observation with the less two nights as well as no for further event. No swallowing problem. Able to eat normally and swallow and no tremor or shakiness has been present and neurological examination was grossly intact except for the forgetfulness and dementia. The exam on discharge: The patient was conscious, alert, and she was able to go to the bathroom. Her HEENT was negative. Neck was supple. Chest was clear to auscultation and percussion. The heart was regular sinus rhythm and the heart rate was 68 and the blood pressure 132/67, and abdomen was soft, obese, positive bowel sounds. Extremities no edema and positive pulses and good perfusion. No shakiness or tremor. No ataxia. No evidence of other neuro deficit. She will be discharged when her son is available to pick her up. MMODL / IJN: [id number] /
[2018-04-15 15:56] LABS: Hemoglobin A1C 6.2 % (4.0-6.0)
--- NOTE | 2018-04-22 08:28 | CDI ---
Last Revision, September 2017 Documentation Clarification Form Date: 04/22/2018 8:27:00 AM From: Nathalie Bell Phone: If you have a question regarding this query, please contact Minal Vega at [phone] between 8am and 5pm. Admit Date: 04/13/2018 12:15:00 PM Patient Name: Cha Quevedo Visit Number: [id number] Discharge Date: 04/14/18 ATTENTION: The Clinical Documentation Specialists (CDI) and [facility] Coding Staff appreciate your assistance in clarifying documentation. Please respond to the clarification below the line at the bottom and electronically sign. The CDI & [facility] Coding staff will review the response and follow-up if needed. Please note: Queries are made part of the Legal Health Record. If you have any questions, please contact the author of this message via ITS. Dr. Keith Garcia Hypertension uncontrolled is document in the medical record. Blood Pressure Readings: Sysstolic 132 - 182, Diastolic 73 - 98 Please specify the type of uncontrolled hypertension such as: Crisis Emergency Urgency Other (please specify in the medical record) Clinically unable to further specify Unknown MTDD
== END 2018-04-14 15:44 | disposition home or self-care (01) | DRG 305 ==
LOC: EC 10:25 → 6SEL 12:15
PROVIDERS: ADMIT Internal Medicine; ATTEND Internal Medicine
DX: I11.9 Hypertensive heart disease without heart failure (principal); E86.0 Dehydration; E66.9 Obesity, unspecified; F02.80 Dementia in other diseases classified elsewhere, unspecified severity, without behavioral disturbance, psychotic disturbance, mood disturbance, and anxiety; G30.9 Alzheimer's disease, unspecified; I25.2 Old myocardial infarction; K59.09 Other constipation; M19.041 Primary osteoarthritis, right hand; M19.042 Primary osteoarthritis, left hand; I83.90 Asymptomatic varicose veins of unspecified lower extremity; Z79.899 Other long term (current) drug therapy; Z68.24 Body mass index [BMI] 24.0-24.9, adult
CPT/HCPCS: 36415; 70450; 71046; 80048; 80053; 80061; 81001; 82550; 82553; 83036; 83605; 83735; 84484; 85025; 85610; 85730; 93005; 96360; 96361; 99285

== ENCOUNTER 2019-03-13 12:36 | Emergency (ER) | payer MEDICARE ==
[2019-03-13 12:53] VITALS: TEMP 97.3
--- NOTE | 2019-03-13 13:00 | ED ---
General Adult HPI - General Stated complaint: altered mental status Time Seen by Provider: 03/13/19 12:49 Source: patient, EMS, RN notes reviewed, old records reviewed Mode of arrival: EMS Limitations: altered mental status - History of Present Illness Initial comments: 83-year-old female history of dementia presents from neurology office with increased agitation and confusion. Patient has no complaints time my evaluation, she does appear somewhat agitated. Unknown baseline mental status. Further history will be obtained from the patient's son who is not initially available. Patient denies headache. Denies focal numbness or weakness. Denies vomiting or diarrhea. Denies fever or chills. Denies abdominal pain. Denies dysuria. She has no complaints. - Related Data Home Medications Medication Instructions Recorded Confirmed Donepezil [Aricept] 10 mg PO DAILY 04/13/18 03/13/19 Memantine [Namenda] 5 mg PO BID 03/13/19 03/13/19 Previous Rx's Medication Instructions Recorded Lisinopril [Zestril] 5 mg PO DAILY #30 tab 04/14/18 LORazepam [Ativan] 0.5 mg PO BID 3 Days #6 tab 03/13/19 Allergies Allergy/AdvReac Type Severity Reaction Status Date / Time No Known Allergies Allergy Verified 03/13/19 13:38 Review of Systems ROS Statement: Those systems with pertinent positive or pertinent negative responses have been documented in the HPI. ROS Other: All systems not noted in ROS Statement are negative. Past Medical History Past Medical History: Dementia History of Any Multi-Drug Resistant Organisms: None Reported Past Surgical History: Tonsillectomy Additional Past Surgical History / Comment(s): EYE SX. Past Anesthesia/Blood Transfusion Reactions: No Reported Reaction Past Psychological History: No Psychological Hx Reported Smoking Status: Never smoker Past Alcohol Use History: None Reported Past Drug Use History: None Reported - Past Family History Father Family Medical History: Cancer Mother History Unknown: Yes General Exam Limitations: altered mental status General appearance: alert, in no apparent distress Head exam: Present: atraumatic, normocephalic Eye exam: Present: normal appearance, PERRL ENT exam: Present: normal exam Neck exam: Present: normal inspection. Absent: tenderness, meningismus Respiratory exam: Present: normal lung sounds bilaterally. Absent: respiratory distress, wheezes Cardiovascular Exam: Present: regular rate, normal rhythm GI/Abdominal exam: Present: soft. Absent: distended, tenderness, guarding Extremities exam: Present: normal inspection, normal capillary refill. Absent: pedal edema Neurological exam: Present: alert, CN II-XII intact. Absent: oriented X3, motor sensory deficit Psychiatric exam: Present: agitated, anxious Skin exam: Present: warm, dry, intact. Absent: cyanosis, diaphoretic Course Vital Signs 03/13/19 03/13/19 12:47 13:30 Temperature 97.3 F L Pulse Rate 71 88 Respiratory 18 20 Rate Blood Pressure 178/98 165/78 O2 Sat by Pulse 96 98 Oximetry - Reevaluation(s) Reevaluation #1: 03/13/19 13:31 Case is discussed with the patient's son who is her primary caregiver. He states that this has been progressive. She does have worsening dementia with associated agitation. He has plans to place this patient in assisted living [facility] within the next several weeks, he states he is able to do it as soon as the next 3-4 days. He is requesting sedative medication to help calm her down. Reevaluation #2: 03/13/19 14:10 On reevaluation, patient is resting comfortably, she is conversant and appropriate with staff. Medical Decision Making - Medical Decision Making 83-year-old female with dementia and worsening aggression and agitation. Patient is planned to be placed in assisted living facility within the next several days. Given Ativan in the emergency department with significant improvement. Will Prescribe short course of benzodiazepines. Disposition Clinical Impression: Dementia Disposition: HOME SELF-CARE Condition: Fair Instructions (If sedation given, give patient instructions): Dementia (ED) Prescriptions: LORazepam [Ativan] 0.5 mg PO BID 3 Days #6 tab Is patient prescribed a controlled substance at d/c from ED?: No Referrals: Homero Hutchinson MD [Primary Care Provider] - 1-2 days Time of Disposition: 14:11
[2019-03-13] MEDS ORDERED: LORazepam 1 MG TAB PO STA (13:18)
[2019-03-13 14:28] VITALS: BP 160/65; PULSE 77; RESP 18
== END 2019-03-13 14:15 | disposition home or self-care (01) ==
LOC: EC 12:36
DX: F03.90 Unspecified dementia, unspecified severity, without behavioral disturbance, psychotic disturbance, mood disturbance, and anxiety (principal); R45.1 Restlessness and agitation; Z79.899 Other long term (current) drug therapy
CPT/HCPCS: 99285

== ENCOUNTER → 2022-02-14 | Outpatient (CLI) | payer MEDICARE ==
--- NOTE | 2022-02-14 14:59 | FL ---
EXAMINATION TYPE: FL barium swallow w video DATE OF EXAM: 02/14/2022 MODIFIED SWALLOW / DEGLUTITION STUDY CLINICAL HISTORY: Dysphagia. TECHNIQUE: Deglutition study is performed utilizing thin liquid barium, honey and nectar thick liqui d barium, barium thick applesauce, and barium coated cracker. COMPARISON: None. FINDINGS: There is no evidence of laryngeal penetration or aspiration at the time of the study. Total fluoroscopic time 1 minute and 17 seconds. No images on PACS. IMPRESSION: No laryngeal penetration or aspiration. Please refer to speech therapist notes for furthe r details.
== END | disposition home or self-care (01) ==
LOC: RADFLMAIN 10:54
PROVIDERS: ATTEND Family Medicine
DX: R13.10 Dysphagia, unspecified (principal)
CPT/HCPCS: 74230

== ENCOUNTER 2022-05-02 17:17 | Emergency (ER) | payer MEDICARE ==
[2022-05-02] MEDS ORDERED: BEBTELOVIMAB (EUA) 175 MG/2 ML VIAL IV ONE (19:00)
--- NOTE | 2022-05-02 19:57 | ED ---
URI HPI - General Chief Complaint: Upper Respiratory Infection Stated Complaint: covid+ Time Seen by Provider: 05/02/22 17:20 Source: EMS Mode of arrival: EMS Limitations: no limitations - History of Present Illness Initial Comments: Patient is an 86 year-old female with a past medical history of dementia who presents to the emergency department from her nursing facility for COVID-19 antibody treatment. Patient tested positive at the facility. Per EMS she has had a mild cough for 3 days and low-grade fever. She is a questionable historian. She denies chest pain, shortness of breath, abdominal pain, and other concerns. - Related Data Home Medications Medication Instructions Recorded Confirmed Donepezil [Aricept] 10 mg PO DAILY 04/13/18 03/13/19 Memantine [Namenda] 5 mg PO BID 03/13/19 03/13/19 Previous Rx's Medication Instructions Recorded lisinopriL [Zestril] 5 mg PO DAILY #30 tab 04/14/18 LORazepam [Ativan] 0.5 mg PO BID 3 Days #6 tab 03/13/19 Allergies Allergy/AdvReac Type Severity Reaction Status Date / Time No Known Allergies Allergy Verified 03/13/19 13:38 Review of Systems ROS Statement: Those systems with pertinent positive or pertinent negative responses have been documented in the HPI. ROS Other: All systems not noted in ROS Statement are negative. Past Medical History Past Medical History: Dementia History of Any Multi-Drug Resistant Organisms: None Reported Past Surgical History: Tonsillectomy Additional Past Surgical History / Comment(s): EYE SX. Past Anesthesia/Blood Transfusion Reactions: No Reported Reaction Past Psychological History: No Psychological Hx Reported Past Alcohol Use History: None Reported Past Drug Use History: None Reported - Past Family History Father Family Medical History: Cancer Mother History Unknown: Yes General Exam Limitations: no limitations General appearance: alert, in no apparent distress Head exam: Present: atraumatic, normocephalic, normal inspection Eye exam: Present: normal appearance, PERRL, EOMI. Absent: scleral icterus, conjunctival injection, periorbital swelling Respiratory exam: Present: normal lung sounds bilaterally. Absent: respiratory distress, wheezes, rales, rhonchi, stridor Cardiovascular Exam: Present: regular rate, normal rhythm, normal heart sounds. Absent: systolic murmur, diastolic murmur, rubs, gallop, clicks GI/Abdominal exam: Present: soft, normal bowel sounds. Absent: distended, tenderness, guarding, rebound, rigid Neurological exam: Present: alert, CN II-XII intact. Absent: oriented X3 Psychiatric exam: Present: normal affect, normal mood Skin exam: Present: warm, dry, intact, normal color. Absent: rash Course Vital Signs 05/02/22 05/02/22 17:20 19:25 Temperature 99.6 F 97.9 F Pulse Rate 69 71 Respiratory 20 16 Rate Blood Pressure 153/83 140/86 O2 Sat by Pulse 97 95 Oximetry Medical Decision Making - Medical Decision Making This is an 86-year-old female with dementia history presenting for COVID-19 antibodies. Thorough history and examination were performed. Patient is well- appearing. She is in no apparent distress. She is afebrile. She is not hyp oxic. Lungs are clear to auscultation bilaterally. With lack of chest pain and shortness of breath, normal vital signs, and clear lung exam, imaging is not warranted at this time. COVID-19 is detected. Patient given antibodies. She was observed in the emergency department and continued to rest comfortably with minimal cough. Patient will be discharged back to her facility. Dr. Preston is my attending. - Lab Data Lab Results 05/02/22 Range/Units 17:34 Coronavirus (PCR) Detected A (Not Detectd) Disposition Clinical Impression: COVID-19 Disposition: HOME SELF-CARE Condition: Good Instructions (If sedation given, give patient instructions): COVID-19 (Coronavirus Disease 2019) (ED) Additional Instructions: Quarantine at nursing facility as much as possible. Return to the emergency department if you experience new, concerning, or worsening symptoms. Is patient prescribed a controlled substance at d/c from ED?: No Referrals: Connor Archibald MD [Primary Care Provider] - 1-2 days Time of Disposition: 19:56
[2022-05-02 21:23] VITALS: BP 180/81; PULSE 70; RESP 18; TEMP 98.2
== END 2022-05-02 21:42 | disposition home or self-care (01) ==
LOC: EC 17:17
DX: U07.1 COVID-19 (principal)
CPT/HCPCS: 87635; 99284; Q0222